=== PATIENT | female | born 1950 | race Caucasian/White ===

== ENCOUNTER 2017-06-03 04:09 | Emergency (ER) | payer MEDICARE ==
[~2017-06-03] VITALS: Ht 157.5 cm; Wt 115.0 kg
[2017-06-03 04:10] VITALS: BP 157/78; PULSE 110; RESP 20; TEMP 98.5; O2SAT 96
[2017-06-03] MEDS ORDERED: TETANUS/DIPHTHERIA TOXOID ADULT 0.5 ML VIAL IM ONE (04:30)
[2017-06-03] MEDS ORDERED: SODIUM CHLORIDE 0.9% FLUSH 10 ML FLUSH IV FLUSH PRN (04:30)
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
[2017-06-03 05:03] LABS: AUTOMATED NEUTROPHIL # 9.1 TH/MM3 (1.8-7.7); BASOPHIL # 0.1 TH/MM3 (0-0.2); BASOPHIL % 0.6 % (0.0-2.0); EOSINOPHIL # 0.1 TH/MM3 (0-0.4); EOSINOPHIL % 1.2 % (0.0-4.0); HEMO FLAGS DIFF FINAL; LYMPH % 9.7 % (9.0-44.0); LYMPHOCYTE # 1.1 TH/MM3 (1.0-4.8); MEAN CELL VOLUME 94.4 FL (80.0-100.0); MEAN CORPUSCULAR HGB CONC 33.9 % (32.0-36.0); MONO % 7.8 % (0.0-8.0); NEUT % 80.7 % (16.0-70.0); PLATELET COUNT 251 TH/MM3 (150-450); RED BLOOD COUNT 4.67 MIL/MM3 (4.00-5.30); RED CELL DISTRIBUTION WIDTH 14.4 % (11.6-17.2); WHITE BLOOD COUNT 11.2 TH/MM3 (4.0-11.0)
[2017-06-03] MEDS ORDERED: TYLE325T PO (05:11)
[2017-06-03] MEDS ORDERED: VALS1TAB70 PO (05:11)
[2017-06-03] MEDS ORDERED: POLY17PO3 (05:11)
[2017-06-03] MEDS ORDERED: CETI10CA3 PO (05:11)
[2017-06-03] MEDS ORDERED: LANTINJ SQ (05:11)
[2017-06-03] MEDS ORDERED: DIGO0.12 PO (05:11)
[2017-06-03] MEDS ORDERED: VITA2000 PO (05:11)
[2017-06-03] MEDS ORDERED: SYMB80AE INH (05:11)
[2017-06-03] MEDS ORDERED: VITA500S3 PO (05:11)
[2017-06-03] MEDS ORDERED: BIOTCAP PO (05:11)
[2017-06-03] MEDS ORDERED: CHLO25TA2 PO (05:11)
[2017-06-03] MEDS ORDERED: DILT300C3 PO (05:11)
[2017-06-03] MEDS ORDERED: WARF-20 PO (05:11)
[2017-06-03] MEDS ORDERED: HUMA100I3 SQ (05:11)
[2017-06-03] MEDS ORDERED: VITA250C3 PO (05:11)
--- NOTE | 2017-06-03 05:15 | RADRPT ---
EXAM DATE/TIME: 06/03/2017 04:55 [facility] COMPARISON: No previous studies available for comparison. INDICATIONS : Trauma, fall. RADIATION DOSE: 36.45 CTDIvol (mGy) MEDICAL HISTORY : Hypertension. Cardiovascular disease Diabetes. SURGICAL HISTORY : Appendectomy. Cholecystectomy.Fusion, cervical. ENCOUNTER: Initial ACUITY: 1 day PAIN SCALE: 2/10 LOCATION: cranial TECHNIQUE: Multiple contiguous axial images were obtained of the head. Using automated exposure control and adj ustment of the mA and/or kV according to patient size, radiation dose was kept as low as reasonably a chievable to obtain optimal diagnostic quality images. DICOM format image data is available electro nically for review and comparison. FINDINGS: CEREBRUM: There is mild generalized atrophy. Ventricles are normal. No evidence of midline shift, mass lesion, hemorrhage or acute infarction. No extra-axial fluid collections are seen. POSTERIOR FOSSA: The cerebellum and brainstem are intact. The 4th ventricle is midline. The cerebellopontine angle i s unremarkable. EXTRACRANIAL: Sinuses demonstrate no acute finding. SKULL: The calvaria is intact. No evidence of skull fracture. CONCLUSION: No acute intracranial abnormality is identified. Rasheed Menchaca MD on June 03, 2017 at 5:10 Board Certified Radiologist. This report was verified electronically.
[2017-06-03 05:23] LABS: BICARBONATE 26.7 MEQ/L (21.0-32.0); POTASSIUM 4.6 MEQ/L (3.5-5.1)
--- NOTE | 2017-06-03 05:37 | RADRPT ---
EXAM DATE/TIME: 06/03/2017 04:55 [facility] COMPARISON: No previous studies available for comparison. INDICATIONS : Trauma, fall. RADIATION DOSE: 23.32 CTDIvol (mGy) MEDICAL HISTORY : Cardiovascular disease. Hypertension. Diabetes, SURGICAL HISTORY : Appendectomy. Cholecystectomy.Fusion, cervical. ENCOUNTER: Initial ACUITY: 1 day PAIN SCALE: 2/10 LOCATION: neck TECHNIQUE: Volumetric scanning of the cervical spine was performed. Multiplanar reconstructions in the sagittal, coronal and oblique axial planes were performed. Using automated exposure control and adjustment o f the mA and/or kV according to patient size, radiation dose was kept as low as reasonably achievable to obtain optimal diagnostic quality images. DICOM format image data is available electronically f or review and comparison. FINDINGS: There is normal sagittal spine alignment of the cervical spine. No anterolisthesis or retrolisthesis is present. The atlantoaxial relationship is within normal limits. There is no prevertebral soft tiss ue swelling present. No fracture or dislocation is identified. Cervical spine hardware is present ant eriorly at C5-T1 T2. There is osseous fusion between the C5-C7 vertebral bodies. Partial fusion is pr esent at C7-T1. Degenerative disc disease is present at C3-C4 and C4-C5. Central disc protrusion is p resent at C3-C4. There is a 12 mm hypodense right thyroid nodule. Otherwise, the visualized portions of the posterior fossa, paraspinous soft tissues, and upper lung zones demonstrate no acute abnormality. CONCLUSION: 1. No acute cervical spine abnormality is identified. There has been anterior cervical fusion at C5 t hrough the T1-T2 level. Degenerative changes are present. 2. There is a 12 mm right thyroid nodule. Given the size consider correlating with thyroid ultrasound for further evaluation on an outpatient elective basis. Rasheed Menchaca MD on June 03, 2017 at 5:31 Board Certified Radiologist. This report was verified electronically.
--- NOTE | 2017-06-03 05:40 | RADRPT ---
EXAM DATE/TIME: 06/03/2017 04:55 [facility] COMPARISON: No previous studies available for comparison. INDICATIONS : Trauma, fall. RADIATION DOSE: 64.27 CTDIvol (mGy) MEDICAL HISTORY : Cardiovascular disease. Hypertension. Diabetes. SURGICAL HISTORY : Cholecystectomy. Appendectomy.Fusion, cervical. ENCOUNTER: Initial ACUITY: 1 day PAIN SCORE: 10 LOCATION: facial TECHNIQUE: Volumetric scanning of the facial bones was performed. Using automated exposure control and adjustme nt of the mA and/or kV according to patient size, radiation dose was kept as low as reasonably achiev able to obtain optimal diagnostic quality images. DICOM format image data is available electronicall y for review and comparison. FINDINGS: ORBITS: There is a right inferomedial orbital floor fracture with fat herniating into the defect. The retroc onal structures have a normal configuration. No radiopaque foreign bodies are seen. The lenses are n ormally located. NASAL BONE: There are minimally displaced nasal bone fractures bilaterally. There is associated mild soft tissue swelling. ZYGOMATIC ARCHES: Symmetric without evidence of fracture. SINUSES: The maxillary, ethmoid, and frontal sinuses are clear. No air-fluid levels seen. NASAL CAVITY: The nasal septum is intact and midline. The lacrimal ducts are intact. SOFT TISSUES: No radiopaque foreign bodies seen. . INTRACRANIAL: No acute intracranial abnormality is seen. OTHER: The mandible and pterygoid plates are intact. CONCLUSION: 1. There is a right orbital floor fracture with fat herniating into the defect. Since there is no ass ociated fluid in the right maxillary sinus, it is possible that this is a chronic abnormality. 2. Minimally displaced nasal bone fractures with associated soft tissue swelling. Rasheed Menchaca MD on June 03, 2017 at 5:35 Board Certified Radiologist. This report was verified electronically.
[2017-06-03 05:41] LABS: APTT (PATIENT) 37.3 SEC (24.3-30.1); INTERNATIONAL NORMALIZED RATIO 2.4 RATIO; PROTHROMBIN TIME - PATIENT 24.1 SEC (9.8-11.6)
[2017-06-03] MEDS ORDERED: ACETAMINOPHEN 325 MG TAB PO ONE (06:15)
[2017-06-03] MEDS ORDERED: TRAM50TA PO (06:27)
== END 2017-06-03 06:35 | disposition home or self-care (01) ==
LOC: NEPE 04:09
DX: S09.90XA Unspecified injury of head, initial encounter (principal); S02.2XXA Fracture of nasal bones, initial encounter for closed fracture; S02.31XA Fracture of orbital floor, right side, initial encounter for closed fracture; S01.21XA Laceration without foreign body of nose, initial encounter; E04.1 Nontoxic single thyroid nodule; I48.91 Unspecified atrial fibrillation; E11.9 Type 2 diabetes mellitus without complications; W18.30XA Fall on same level, unspecified, initial encounter; Z23 Encounter for immunization
CPT/HCPCS: 12011; 70450; 70486; 72125; 80048; 85025; 85610; 85730; 90471; 90714

== ENCOUNTER 2017-08-01 12:53 | Day surgery (SDC) | payer MEDICARE ==
[~2017-08-01 12:53] MED LIST: BIOTCAP PO; CETI10CA3 PO; CHLO25TA2 PO; DIGO0.12 PO; DILT300C3 PO; HUMA100I3 SQ; LANTINJ SQ; POLY17PO3; SYMB80AE INH; TRAM50TA PO; TYLE325T PO; VALS1TAB70 PO; VITA2000 PO; VITA250C3 PO; VITA500S3 PO; WARF-20 PO
[2017-08-01 13:31] VITALS: BP 138/82; PULSE 100; RESP 20; TEMP 97.6; O2SAT 96
[2017-08-01 14:25] VITALS: BP 165/74; PULSE 90; RESP 20; TEMP 97.9; O2SAT 94
[2017-08-01] MEDS ORDERED: LIDOCAINE HCL 1% 20 ML VIAL ONE (15:58)
--- NOTE | 2017-08-01 16:25 | RADRPT ---
EXAM DATE/TIME: 08/01/2017 13:22 [facility] COMPARISON: No previous studies available for comparison. INDICATIONS : Right thyroid nodule x 2. MEDICAL HISTORY : Hypertension. Diabetes. Kidney stones. Arthritis. SURGICAL HISTORY : Kidney surgery. ENCOUNTER: Initial ACUITY: 1 day PAIN SCORE: 0/10 LOCATION: Right neck ORGAN: Right thyroid lobe SPECIMENS: Seven fine needle aspirate(s) submitted for pathologic evaluation. DEVICE: 22 gauge needle Post procedure scanning reveals no hematoma or other complication. The possibility does exist that the tissue obtained will be non-diagnostic. If the sample is non-irving gnostic a repeat biopsy or surgical biopsy may need to be performed. TECHNIQUE: 1. Ultrasound guidance for needle biopsy. 2. Needle biopsy. The risks, benefits and alternatives to the procedure were explained and verbal and written consent w as obtained. The site was prepped in sterile fashion. Full sterile technique was used, including ca p, mask, sterile gloves and gown and a large sterile sheet. Hand hygiene and 2% chlorhexidine and/or betadine/alcohol prep was utilized per protocol for cutaneous antisepsis. The skin and subcutaneous tissues were infiltrated with local anesthetic solution. Sterile gel and sterile probe cover were u tilized for ultrasound guidance. With the patient on the ultrasound table, images were obtained. A needle was advanced into the identified target and the number of specimens as above obtained and grady bmitted for pathologic evaluation. The patient tolerated the procedure well and left the ultrasound suite in stable condition. CONCLUSION: Uncomplicated ultrasound guided needle biopsy of right superior and right inferior thyroid nodule. eJy Benjamin MD on August 01, 2017 at 16:22 Board Certified Radiologist. This report was verified electronically.
== END 2017-08-01 14:50 | disposition home or self-care (01) ==
LOC: HRAD 12:53 → HRIP 12:58 → HRAD 14:50
PROVIDERS: ATTEND Nurse Practitioner Adult Health
DX: E04.2 Nontoxic multinodular goiter (principal); I10 Essential (primary) hypertension; E11.9 Type 2 diabetes mellitus without complications; Z87.442 Personal history of urinary calculi
CPT/HCPCS: 10022; 76942; 88172; 88173